=== PATIENT | female | born 1970 | race Caucasian/White ===

== ENCOUNTER 2019-03-17 06:28 | Inpatient (IN) ==
[~2019-03-17 06:28] MED LIST: Bacitracin 50,000 UNIT, Polymyxin B Sulfate 500,000 UNIT, Sodium Chloride IRRigation 1,... IR ONE
[2019-03-17] MEDS ORDERED: CeFAZolin Syr 2,000MG/20 ML 2,000 MG/20 ML SYRINGE IVPB ONE (07:06)
[2019-03-17] MEDS ORDERED: Albuterol 2.5 MG/3 ML NEBULIZER IH PRN (07:06)
[2019-03-17] MEDS ORDERED: Ringers Solution, Lactated 1,000 ML IVC SCH (07:15)
[2019-03-17] MEDS ORDERED: Acetaminophen IV 1,000 MG/100 ML INFUS..BTL IVPB ONE (07:35)
[2019-03-17] MEDS ORDERED: *HR* HYDROcodone/Acet 5/325 mg TABLET PO PRN (07:36)
[2019-03-17] MEDS ORDERED: Dexamethasone 4 MG/ML VIAL ONE (07:45)
[2019-03-17] MEDS ORDERED: *HR* FentaNYL (PF) 100 MCG/2 ML VIAL ONE (07:45)
[2019-03-17] MEDS ORDERED: *HR* Midazolam HCl 2 MG/2 ML VIAL ONE (07:45)
[2019-03-17] MEDS ORDERED: *HR* Propofol 200 MG/20 ML VIAL IVP ONE (07:45)
[2019-03-17] MEDS ORDERED: *HR* Rocuronium Bromide 50 MG/5 ML VIAL ONE (07:45)
[2019-03-17] MEDS ORDERED: Ondansetron 4 MG/2 ML VIAL ONE (07:45)
[2019-03-17] MEDS ORDERED: Lidocaine -MPF 2% 2 ML VIAL ONE (07:45)
[2019-03-17] MEDS ORDERED: *HR* HYDROMORPHONE 2 MG/ML VIAL ONE ×2 (08:56→11:23)
[2019-03-17] MEDS ORDERED: Neostigmine Methylsulfate 3 MG/3 ML SYRINGE ONE (09:39)
[2019-03-17] MEDS ORDERED: *HR* Phenylephrine 10 MG/ML VIAL ONE (09:55)
[2019-03-17] MEDS: Morphine Sulfate 2 MG/ML SYRINGE IVP PRN ×4 (11:57→12:28)
[2019-03-17] MEDS ORDERED: *HR* Acetaminophen w/Cod 300-30 mg 1 TAB TABLET PO PRN (12:54)
[2019-03-17] MEDS ORDERED: Ondansetron 4 MG/2 ML VIAL IVP PRN (12:54)
[2019-03-17] MEDS ORDERED: Levalbuterol Neb 1.25 MG/3 ML IH PRN (12:54)
[2019-03-17] MEDS ORDERED: Acetaminophen 325 MG TABLET PO PRN (12:54)
[2019-03-17] MEDS ORDERED: Naloxone 0.4 MG/ML INJ IVP PRN (12:54)
[2019-03-17] MEDS ORDERED: tiZANidine 4 MG TABLET PO PRN (13:39)
[2019-03-17] MEDS: diazePAM 5 MG TABLET PO PRN (16:09)
[2019-03-17] MEDS: Pregabalin 50 MG CAPSULE PO SCH ×2 (16:09→20:35)
[2019-03-17] MEDS: *HR* OxyCODONE Immed Rel 5 MG TABLET PO PRN ×2 (16:09→22:42)
[2019-03-17] MEDS: Baclofen 10 MG TABLET PO SCH ×2 (16:09→20:35)
[2019-03-17] MEDS: Tiotropium 18 MCG inhalation IH SCH (16:23)
[2019-03-17] MEDS: Ringers Solution, Lactated 1,000 ML IVC SCH (17:39)
[2019-03-17] MEDS ORDERED: Ketorolac 30 MG/ML VIAL IVP ONE (18:41)
[2019-03-17] MEDS: traZODone 50 MG TABLET PO SCH (20:35)
[2019-03-17] MEDS: rOPINIRole 1 MG TABLET PO SCH (20:35)
[2019-03-17] MEDS: Mirtazapine 15 MG TABLET PO SCH (20:36)
[2019-03-17] MEDS: *HR* HYDROcodone/Acet 5/325 mg TABLET PO PRN (20:39)
[2019-03-18] MEDS: *HR* OxyCODONE Immed Rel 5 MG TABLET PO PRN ×5 (02:38→22:22)
[2019-03-18] MEDS: *HR* HYDROcodone/Acet 5/325 mg TABLET PO PRN ×3 (04:19→16:26)
[2019-03-18] MEDS: diazePAM 5 MG TABLET PO PRN ×2 (05:45→18:06)
[2019-03-18] MEDS: Tiotropium 18 MCG inhalation IH SCH (07:49)
[2019-03-18] MEDS: Pregabalin 50 MG CAPSULE PO SCH ×3 (08:40→21:23)
[2019-03-18] MEDS: Loratadine 10 MG TABLET PO SCH (08:41)
[2019-03-18] MEDS: Baclofen 10 MG TABLET PO SCH ×3 (08:41→21:24)
[2019-03-18] MEDS: Metoprolol XL (24 HR) Succ 25 MG TAB.ER.24H PO SCH (08:41)
[2019-03-18] MEDS ORDERED: tiZANidine 4 MG TABLET PO PRN (17:17)
[2019-03-18] MEDS ORDERED: Ketorolac 15 MG/ML VIAL IVP ONE (17:29)
[2019-03-18] MEDS: Ringers Solution, Lactated 1,000 ML IVC SCH ×2 (19:30→19:31)
[2019-03-18] MEDS: Mirtazapine 15 MG TABLET PO SCH (21:23)
[2019-03-18] MEDS: rOPINIRole 1 MG TABLET PO SCH (21:23)
[2019-03-18] MEDS: traZODone 50 MG TABLET PO SCH (21:24)
[2019-03-19] MEDS: *HR* HYDROcodone/Acet 5/325 mg TABLET PO PRN ×2 (00:22→06:25)
[2019-03-19] MEDS: *HR* OxyCODONE Immed Rel 5 MG TABLET PO PRN ×3 (03:47→16:36)
[2019-03-19] MEDS: diazePAM 5 MG TABLET PO PRN (03:48)
[2019-03-19 04:53] LABS: Hematocrit 34.6 % (35.3-44.9)
[2019-03-19 04:59] LABS: BUN/Creatinine Ratio 13 (6-26); Blood Urea Nitrogen 10 mg/dL (6-20); Calcium 8.8 mg/dL (8.6-10.3); Carbon Dioxide 28 mEq/L (23-29); Chloride 102 mEq/L (98-107); Glucose 103 mg/dL (70-105); Osmolality,Calculated 285 (280-300); Potassium 3.4 mEq/L (3.5-5.1); Sodium 138 mEq/L (136-145); eGFR For African Americans > 60 (> 60); eGFR For Non-African Americans > 60 (> 60)
[2019-03-19] MEDS: Ringers Solution, Lactated 1,000 ML IVC SCH ×3 (05:03→23:30)
[2019-03-19] MEDS: Acetaminophen IV 1,000 MG/100 ML INFUS..BTL IVPB PRN ×3 (07:35→23:31)
[2019-03-19] MEDS: Tiotropium 18 MCG inhalation IH SCH (07:58)
[2019-03-19] MEDS: Pregabalin 50 MG CAPSULE PO SCH ×3 (08:53→21:19)
[2019-03-19] MEDS: Loratadine 10 MG TABLET PO SCH (08:53)
[2019-03-19] MEDS: Metoprolol XL (24 HR) Succ 25 MG TAB.ER.24H PO SCH (08:53)
[2019-03-19] MEDS: Baclofen 10 MG TABLET PO SCH ×3 (08:53→21:31)
[2019-03-19] MEDS ORDERED: tiZANidine 4 MG TABLET PO PRN (11:32)
[2019-03-19] MEDS ORDERED: 0.9 % Sodium Chloride 1,000 ML IVC ONE (11:34)
[2019-03-19] MEDS ORDERED: 0.9 % Sodium Chloride 1,000 ML ONE (11:36)
[2019-03-19] MEDS ORDERED: Ketorolac 30 MG/ML VIAL IVP ONE (14:48)
[2019-03-19] MEDS: rOPINIRole 1 MG TABLET PO SCH (21:31)
[2019-03-19] MEDS: HYDROcodone BIT/Homatropine 5 MG TABLET PO PRN (21:32)
[2019-03-19] MEDS: traZODone 50 MG TABLET PO SCH (21:32)
[2019-03-19] MEDS: Mirtazapine 15 MG TABLET PO SCH (21:32)
[2019-03-20] MEDS: *HR* OxyCODONE Immed Rel 5 MG TABLET PO PRN ×6 (00:04→22:22)
[2019-03-20] MEDS: diazePAM 5 MG TABLET PO PRN (04:46)
[2019-03-20] MEDS: Pregabalin 50 MG CAPSULE PO SCH (07:08)
[2019-03-20] MEDS: Baclofen 10 MG TABLET PO SCH ×3 (07:08→20:12)
[2019-03-20] MEDS: Loratadine 10 MG TABLET PO SCH (07:09)
[2019-03-20] MEDS: Metoprolol XL (24 HR) Succ 25 MG TAB.ER.24H PO SCH (07:09)
[2019-03-20] MEDS: Tiotropium 18 MCG inhalation IH SCH (07:46)
[2019-03-20] MEDS: tiZANidine 4 MG TABLET PO SCH ×3 (09:33→20:10)
[2019-03-20] MEDS: Acetaminophen 325 MG TABLET PO SCH ×2 (11:22→17:34)
[2019-03-20] MEDS: Pregabalin 75 MG CAPSULE PO SCH ×2 (15:43→20:12)
[2019-03-20] MEDS: rOPINIRole 1 MG TABLET PO SCH (20:11)
[2019-03-20] MEDS: Mirtazapine 15 MG TABLET PO SCH (20:12)
[2019-03-20] MEDS: traZODone 50 MG TABLET PO SCH (20:13)
[2019-03-21] MEDS: Acetaminophen 325 MG TABLET PO SCH ×3 (00:17→20:03)
[2019-03-21] MEDS: tiZANidine 4 MG TABLET PO SCH ×3 (03:37→20:10)
[2019-03-21] MEDS: HYDROcodone BIT/Homatropine 5 MG TABLET PO PRN (04:00)
[2019-03-21] MEDS: *HR* OxyCODONE Immed Rel 5 MG TABLET PO PRN (05:03)
[2019-03-21] MEDS: Tiotropium 18 MCG inhalation IH SCH (07:17)
[2019-03-21] MEDS ORDERED: Temazepam 15 MG CAPSULE PO PRN (11:14)
[2019-03-21] MEDS ORDERED: Ketorolac 30 MG/ML VIAL IVP ONE (11:14)
[2019-03-21] MEDS ORDERED: Ketorolac 30 MG/ML VIAL ONE (18:24)
[2019-03-21] MEDS: Loratadine 10 MG TABLET PO SCH (19:58)
[2019-03-21] MEDS: Baclofen 10 MG TABLET PO SCH ×2 (20:00→20:10)
[2019-03-21] MEDS: Metoprolol XL (24 HR) Succ 25 MG TAB.ER.24H PO SCH (20:01)
[2019-03-21] MEDS: Pregabalin 75 MG CAPSULE PO SCH ×2 (20:01→20:10)
[2019-03-21] MEDS: Mirtazapine 15 MG TABLET PO SCH (20:10)
[2019-03-21] MEDS: traZODone 50 MG TABLET PO SCH (20:10)
[2019-03-21] MEDS: rOPINIRole 1 MG TABLET PO SCH (20:11)
[2019-03-22] MEDS: Acetaminophen 325 MG TABLET PO SCH ×5 (00:25→23:14)
[2019-03-22] MEDS: tiZANidine 4 MG TABLET PO SCH ×4 (03:33→20:17)
[2019-03-22] MEDS: *HR* OxyCODONE Immed Rel 5 MG TABLET PO PRN ×5 (06:21→23:17)
[2019-03-22] MEDS: Tiotropium 18 MCG inhalation IH SCH (07:28)
[2019-03-22] MEDS: Baclofen 10 MG TABLET PO SCH ×3 (09:06→20:17)
[2019-03-22] MEDS: Loratadine 10 MG TABLET PO SCH (09:07)
[2019-03-22] MEDS: diazePAM 5 MG TABLET PO PRN ×2 (09:07→17:47)
[2019-03-22] MEDS: Metoprolol XL (24 HR) Succ 25 MG TAB.ER.24H PO SCH (09:07)
[2019-03-22] MEDS: Pregabalin 75 MG CAPSULE PO SCH ×3 (09:07→20:16)
[2019-03-22] MEDS: HYDROcodone BIT/Homatropine 5 MG TABLET PO PRN ×2 (09:13→17:47)
[2019-03-22] MEDS: Acetaminophen IV 1,000 MG/100 ML INFUS..BTL IVPB PRN ×2 (12:00→20:54)
[2019-03-22] MEDS: Mirtazapine 15 MG TABLET PO SCH (20:16)
[2019-03-22] MEDS: rOPINIRole 1 MG TABLET PO SCH (20:16)
[2019-03-22] MEDS: traZODone 50 MG TABLET PO SCH (20:16)
[2019-03-23] MEDS: tiZANidine 4 MG TABLET PO SCH ×4 (02:40→21:19)
[2019-03-23] MEDS: HYDROcodone BIT/Homatropine 5 MG TABLET PO PRN ×4 (02:42→21:20)
[2019-03-23] MEDS: *HR* OxyCODONE Immed Rel 5 MG TABLET PO PRN ×5 (05:05→23:22)
[2019-03-23] MEDS: Acetaminophen 325 MG TABLET PO SCH ×4 (05:06→23:21)
[2019-03-23] MEDS: Tiotropium 18 MCG inhalation IH SCH (07:18)
[2019-03-23] MEDS: Baclofen 10 MG TABLET PO SCH ×3 (08:44→21:17)
[2019-03-23] MEDS: Loratadine 10 MG TABLET PO SCH (08:45)
[2019-03-23] MEDS: Metoprolol XL (24 HR) Succ 25 MG TAB.ER.24H PO SCH (08:45)
[2019-03-23] MEDS: Pregabalin 75 MG CAPSULE PO SCH ×3 (08:45→21:19)
[2019-03-23] MEDS: Acetaminophen IV 1,000 MG/100 ML INFUS..BTL IVPB PRN (09:28)
[2019-03-23] MEDS: diazePAM 5 MG TABLET PO PRN (14:51)
[2019-03-23] MEDS: rOPINIRole 1 MG TABLET PO SCH (21:18)
[2019-03-23] MEDS: traZODone 50 MG TABLET PO SCH (21:18)
[2019-03-23] MEDS: Mirtazapine 15 MG TABLET PO SCH (21:19)
[2019-03-24] MEDS: tiZANidine 4 MG TABLET PO SCH ×2 (02:46→08:48)
[2019-03-24] MEDS: Acetaminophen 325 MG TABLET PO SCH (06:16)
[2019-03-24] MEDS: *HR* OxyCODONE Immed Rel 5 MG TABLET PO PRN ×2 (06:18→10:12)
[2019-03-24] MEDS: Tiotropium 18 MCG inhalation IH SCH (07:26)
[2019-03-24] MEDS: Loratadine 10 MG TABLET PO SCH (08:48)
[2019-03-24] MEDS: Pregabalin 75 MG CAPSULE PO SCH (08:48)
[2019-03-24] MEDS: Baclofen 10 MG TABLET PO SCH (08:48)
[2019-03-24] MEDS: Metoprolol XL (24 HR) Succ 25 MG TAB.ER.24H PO SCH (08:49)
[2019-03-24] MEDS: HYDROcodone BIT/Homatropine 5 MG TABLET PO PRN (08:49)
[2019-03-24 10:13] VITALS: BP 129/74
== END 2019-03-24 13:00 | DRG 304 ==
LOC: SAMDAY 06:28 → 3NENU 12:53
PROVIDERS: ADMIT Orthopaedic Surgery Orthopaedic Surgery of the Spine; ATTEND Orthopaedic Surgery Orthopaedic Surgery of the Spine